=== PATIENT | male | born 1980 | race Caucasian/White ===

== ENCOUNTER 2016-12-09 15:17 | Observation (INO) ==
[2016-12-09] MEDS ORDERED: *HR* HYDROcodone/Acet 10/325 mg TABLET PO ONE (15:39)
--- NOTE | 2016-12-09 15:41 | Emergency Department Note ---
Disposition Clinical Impression: Open fracture of phalanx of left little finger Disposition: Admitted As Inpatient Condition: Good General Adult HPI - General Chief complaint: ED Extremity Injury, Upper Stated complaint: Smashed Left hand Time Seen by Provider: 12/09/16 15:22 Source: police Limitations: no limitations - History of Present Illness Pain Scale: 10 - Related Data Previous Rx's Medication Instructions Recorded HYDROcodone/Acet 7.5/325 mg [[place] 1 tab PO Q6H PRN #25 tablet 12/09/16 7.5-325 mg] Allergies Allergy/AdvReac Type Severity Reaction Status Date / Time iodine Allergy Swelling Verified 12/09/16 15:29 of Lip/Tongue/Throat shellfish derived Allergy Swelling Verified 12/09/16 15:29 of Lip/Tongue/Throat Past Medical History - Past Medical History Medical history: Reports: diabetes Psychiatric history: Reports: anxiety - Social History Smoking Status: Current every day smoker Smokeless Tobacco Status: No Alcohol use: Reports: none Drug use: Reports: none Physical Exam - General Limitations: no limitations General appearance: alert Course Vital Signs Temperature 98.1 F 12/09/16 15:21 Pulse Rate 85 12/09/16 15:21 Respiratory Rate 20 12/09/16 15:21 Blood Pressure 128/81 12/09/16 15:21 O2 Sat by Pulse Oximetry 98 12/09/16 15:21 Temperature 98.5 F 12/09/16 22:16 Pulse Rate 78 12/09/16 22:16 Respiratory Rate 16 12/09/16 22:16 Blood Pressure 110/75 12/09/16 22:16 O2 Sat by Pulse Oximetry 97 12/09/16 22:16 Oxygen Delivery Oxygen Delivery Room Air Attestation Statement - Attestation Attestation: I examined this patient and my medical decision-making was reviewed with the Resident Physician. I agree with the documented findings, disposition and treatment plan as described except to the extent set forth below. [id number] time provided Patient presents from senior living. He actually slammed his left fifth digit in the senior living door. He has a stellate laceration to the palmar aspect of his left fifth digit proximally. There are exposed flexor tendons. Concern for open fracture. The patient's tetanus has not been updated within the past 10 years. He is uncomfortable appearing on exam. We will x-ray the affected area and discussed the case with the on-call orthopedist 14:20: xrays reviewed by me and discussed with ortho agriculture extension specialist by resident physician
[2016-12-09] MEDS ORDERED: Lidocaine 1% 20 ML MDV INFILT ONE (15:42)
[2016-12-09] MEDS ORDERED: Tdap (ADACEL) Vaccine 0.5 ML IM ONE (15:53)
--- NOTE | 2016-12-09 15:53 | Emergency Department Note ---
Disposition Clinical Impression: Open fracture of phalanx of left little finger Qualifiers: Encounter type: initial encounter Phalanx: proximal Fracture alignment: displaced Qualified Code(s): S62.617B - Displaced fracture of proximal phalanx of left little finger, initial encounter for open fracture Disposition: Admitted As Inpatient Condition: Good Time of Disposition: 17:19 General Adult HPI - General Chief complaint: ED Extremity Injury, Upper Stated complaint: Smashed Left hand Time Seen by Provider: 12/09/16 15:22 Source: patient, police Mode of arrival: ambulatory Limitations: no limitations Nursing Notes Reviewed: Yes Vital Signs Reviewed: Yes - History of Present Illness HPI Narrative: 36-year-old male otherwise healthy presents with left hand injury. He presents with police from the [facility]. He reportedly shut his hand on a door. Injury to the left pinky with severe pain. Open laceration with exposed tendon vs bone. Denies any head injury, loss of consciousness. No other complaints. He is unsure of his last tetanus believes it could possibly be within the last 10 years. Will update tetanus here. X-ray and irrigation to evaluate for flexor tendon laceration or interruption. Pain Scale: 10 - Related Data Allergies Allergy/AdvReac Type Severity Reaction Status Date / Time iodine Allergy Swelling Verified 12/09/16 15:29 of Lip/Tongue/Throat shellfish derived Allergy Swelling Verified 12/09/16 15:29 of Lip/Tongue/Throat All systems ED: reviewed and negative except as stated. Review of Systems: As Per HPI Cardiovascular: Denies: chest pain Respiratory: Denies: dyspnea Gastrointestinal: Denies: abdominal pain Musculoskeletal: Denies: back pain, neck pain Past Medical History - Past Medical History Attestation: Yes The following information was validated with the patient. Source: patient Medical history: Reports: diabetes Psychiatric history: Reports: anxiety - Social History Smoking Status: Current every day smoker Smokeless Tobacco Status: No Alcohol use: Reports: none Drug use: Reports: none Physical Exam - General Limitations: no limitations General appearance: alert - Chest Chest inspection: Present: normal inspection, symmetric chest wall rise - Respiratory Respiratory exam: Present: normal lung sounds bilaterally. Absent: respiratory distress, wheezes - Cardiovascular Cardiovascular exam: Present: regular rate, normal rhythm, normal heart sounds - Expanded Upper Extremity Exam Shoulder exam: Present: normal inspection, full ROM Arm exam: Present: normal inspection, full ROM Elbow exam: Present: normal inspection, full ROM Forearm/Wrist exam: Present: normal inspection, full ROM. Absent: tenderness over anatomical snuff box, pain with axial thumb loading Hand exam: Present: normal inspection, laceration (Left 5th digit, open, exposed white material likely flexor tendon), deformity. Absent: amputation Neuromotor exam: Normal: wrist extension, thumb opposition, thumb IP flexion, thumb adduction, fingers 2-5 abduction Neurosensory exam: Normal: radial nerve Vascular exam: Normal: capillary refill, radial pulse Course - Reevaluation(s) Reevaluation #1: Tetanus was updated here. Patient is neurovascular intact with good capillary refill less than 2 seconds. Laceration with open fracture to the left 5th finger with exposed white material likely the flexor tendon. X-ray revealed a comminuted displaced fracture of the proximal phalanx. Will contact orthopedic surgeon on-call for possible repair. Dilaudid for pain. Time: 16:10 - Consultations Consultation #1: Spoke with Dr. Garcia, chetan and will speak to the hand surgeon. Time: 16:25 Consultation #2: Dr. Barboza at bedside to evaluate. Will admit for OR repair. Requests Ancef 2 g and nonadherent dressing. Remains neurovascularly intact. No irrigation was performed. Pain controlled Time: 17:19 Vital Signs Temperature 98.1 F 12/09/16 15:21 Pulse Rate 85 12/09/16 15:21 Respiratory Rate 20 12/09/16 15:21 Blood Pressure 128/81 12/09/16 15:21 O2 Sat by Pulse Oximetry 98 12/09/16 15:21 Temperature 98.1 F 12/09/16 15:21 Pulse Rate 85 12/09/16 15:21 Respiratory Rate 20 12/09/16 15:21 Blood Pressure 128/81 12/09/16 15:21 O2 Sat by Pulse Oximetry 98 12/09/16 15:21 Oxygen Delivery Oxygen Delivery Room Air Medical Decision Making - Medical Records Medical records reviewed: Yes I reviewed the patient's medical records. - Radiology Data Radiology results reviewed: Yes I reviewed the patient's radiology results. Hand X-Ray 12/09/16 15:39 IMPRESSION: Comminuted and displaced fracture involving the proximal phalanx of the 5th finger, with intra-articular extension to the DIP joint. D/ /09/2016 15:56:37 Manuel Ling MD / evita Interpreting Provider: Manuel Ling MD
[2016-12-09] MEDS ORDERED: *HR* HYDROmorphone (PF) 1 MG/ML SYRINGE IVP ONE (16:33)
[2016-12-09] MEDS ORDERED: ceFAZolin 2,000 MG in D5% in Water 100 ML IVPB ONE (17:12)
--- NOTE | 2016-12-09 17:14 | Anesthesia Evaluation PreOp ---
Date of Encounter: 12/09/16 Time of Encounter: 17:12 - Past History Planned Operation: I&D and ORIF Left Small finger Pulmonary History: Smoker, Pack/yr (1 ppd x 20 years) FLOSSER History: Other (Anxiety) Other Medical History: Diabetes Type II, GERD Anesthesia History: Past Anesthesia (none) Alcohol Use: none Drug use: none Medications and Allergies Allergies iodine Allergy (Verified 12/09/16 15:29) Swelling of Lip/Tongue/Throat shellfish derived Allergy (Verified 12/09/16 15:29) Swelling of Lip/Tongue/Throat - Meds/Allergy Pre-op Review Medications Reviewed: Yes Allergies Reviewed: Yes Beta Blockers on Current Med List: No Anesthesia Results - Labs hemacue 13.2 Glucose 64 Anesthesia Exam O2 Sat Height 1.68 m Weight 68.039 kg O2 Sat by Pulse Oximetry 98 Vital Signs Temp Pulse Resp BP Pulse Ox 98.1 F 85 20 128/81 98 12/09/16 15:21 12/09/16 15:21 12/09/16 15:21 12/09/16 15:21 12/09/16 15:21 Blood glucose: 64 Height: 5'6'' Weight: 150# NPO (# of Hours): > 8 hrs Pain Scale: 0 Pain Scale Used: Numeric (1 - 10) - HEENT Pupil (Motor): Pupils equal, EOMI Mallampati: II Teeth: Normal Oral Opening: Greater than 3 - FLOSSER LOC: Oriented FLOSSER Motor: Normal RUE, Normal LUE, Normal RLE, Normal LLE, Normal Face FLOSSER Sensory: Normal: RUE, LUE, RLE, LLE, Face - Cardiac Rhythm: Regular Murmur: None JVD: No Carotid Bruit: No - Pulmonary Breath Sounds: bilateral Clear Respiratory Effort: Symmetrical Anesthesia Assess/Plan ASA Score: 2 Modified Coxsackie Scale for Level of Consciousness: Cooperative, oriented, and tranquil Anesthetic Plan: General Autologous Blood: Yes Monitoring Plan: Standard Monitors Recovery Plan: PACU
[2016-12-09] MEDS ORDERED: Lidocaine -MPF 2% 2 ML VIAL ONE ×2 (17:27→19:02)
[2016-12-09] MEDS ORDERED: *HR* Midazolam HCl 2 MG/2 ML VIAL ONE (17:27)
[2016-12-09] MEDS ORDERED: *HR* FentaNYL (PF) 100 MCG/2 ML VIAL ONE ×2 (17:27→18:14)
[2016-12-09] MEDS ORDERED: *HR* Propofol 200 MG/20 ML VIAL IVP ONE (17:27)
--- NOTE | 2016-12-09 17:27 | Orthopedic Consult Note ---
Date of Encounter: 12/09/16 Time of Encounter: 17:25 Assessment and Plan (1) Open fracture of phalanx of left little finger Current Visit: Yes Status: Acute I did discuss the diagnosis in great detail with the patient. He has an open proximal phalangeal fracture of the left small finger after a crush injury. I did discuss treatment options and my recommendation is for exploration of the small finger with irrigation and debridement as well as fixation of the fracture either with a plate and screws, K wires, or external fixation. Other injured structures will be repaired as necessary. I did indicate to the patient the serious nature of this injury which will likely result in some degree of stiffness and the possible need for further procedures or even joint arthrodesis or finger amputation. The risks discussed included but were not limited to stiffness, bleeding, infection, blood clots, damage to neurovascular structures, tendons, ligaments, and bone. Also discussed was the risk of continued symptoms and possible need for further procedures. I did discuss the anesthesia risks including stroke, heart attack, and . I did discuss the reasonable, foreseeable postoperative course with the patient. I explained to the patient on simple terms and he wished to proceed and consent was obtained. Qualifiers: Encounter type: initial encounter Phalanx: proximal Fracture alignment: displaced Qualified Code(s): S62.617B - Displaced fracture of proximal phalanx of left little finger, initial encounter for open fracture History of Present Illness HPI: Mr. Orantes is a 36 year old male right-hand dominant prisoner with type 2 diabetes. He is otherwise healthy. He comes in after smashing his left small finger within the door of the cell. The patient indicates that there was an accident, however there has been a number of recent prisoners who have self- inflicted injuries of the same kind. Nevertheless the patient complains of isolated left small finger pain and was seen in the emergency department where an open proximal phalanx fracture was identified with a significant soft tissue injury. Emergency department has started 2 g of Ancef. The patient denies any other injuries. He does complain of altered sensation at the tip of the small finger. He has pain with any movement of the finger. No other modifying factors are associated signs or symptoms. He denies any headaches, neck pain, chest pain, abdominal pain, right upper stomach pain, and bilateral lower extremity pain. Past Med Surg Social Fam HX - Past Medical History Medical history: diabetes Psychiatric history: anxiety - Social History Smoking Status: Current every day smoker Smokeless Tobacco Status: No Alcohol use: none Drug use: none Medications and Allergies Allergies iodine Allergy (Verified 12/09/16 15:29) Swelling of Lip/Tongue/Throat shellfish derived Allergy (Verified 12/09/16 15:29) Swelling of Lip/Tongue/Throat All Systems Reviewed: Constitutional and musculoskeletal systems were reviewed and are negative unless otherwise stated in history of present illness. Physical Exam - Constitutional Vitals: Temp Pulse Resp BP Pulse Ox 98.1 F 85 20 128/81 98 12/09/16 15:21 12/09/16 15:21 12/09/16 15:21 12/09/16 15:21 12/09/16 15:21 CONSTITUTIONAL -Vitals reviewed -The patient is well developed, well nourished, well groomed PSYCHIATRIC -Fully alert and oriented x 3 -Pleasant mood LEFT UPPER EXTREMITY Inspection shows that he has a deformity about the small finger with a three quarters circumferential laceration beginning at the volar ulnar corner of the proximal phalangeal region and extending radially around the finger to the dorsum. There is exposed flexor tendon which appears to be intact. I am not able to evaluate the extensor tendon in the wound. There is no significant bleeding. The patient can grossly flex and extend the digit with significant pain related to the injury. No other injuries are noted. The finger is grossly sensate at the tip though he says the sensation is altered. It is well perfused with brisk capillary refill. The other digits are freely mobile, nontender, sensory, and well-perfused. Radial arteries 2+. He has full active and passive motion of the wrist, elbow, and shoulder. Diagnostic Imaging: I did personally review and interpret x-rays of the left hand which show significant fracture involving the distal portion of the proximal phalanx which is intra-articular and significantly angulated and displaced. The PIP joint itself appears to be intact otherwise. No other bony injuries noted. Results - Labs Labs: All other labs normal. Consult Discharge Plan - Plan Referrals: NONE,PCP [Primary Care Provider] -
[2016-12-09] MEDS ORDERED: Bupivacaine/EPI 1:200k 0.5%PF 10 ML VIAL ONE (17:34)
[2016-12-09] MEDS ORDERED: Albuterol 2.5 MG/3 ML NEBULIZER IH ONE (17:47)
[2016-12-09] MEDS ORDERED: Albuterol 2.5 MG/3 ML NEBULIZER ONE (17:49)
[2016-12-09] MEDS ORDERED: *HR* Dextrose 50 % in Water (Syg) 50 ML SYRINGE ONE (18:28)
[2016-12-09] MEDS ORDERED: EPHEDrine 50 MG/ML VIAL ONE (18:45)
[2016-12-09] MEDS ORDERED: *HR* HYDROmorphone (PF) 1 MG/ML SYRINGE IVP PRN (18:51)
[2016-12-09] MEDS ORDERED: *HR* Promethazine 25 MG/ML VIAL IVP PRN (18:51)
[2016-12-09] MEDS ORDERED: *HR* HYDROcodone/Acet 5/325 mg TABLET PO PRN (19:14)
[2016-12-09] MEDS ORDERED: Naloxone 0.4 MG/ML INJ IVP PRN (19:14)
--- NOTE | 2016-12-09 19:14 | Orthopedic Operative Note ---
Date of procedure: 12/09/16 Procedure: OPERATIVE REPORT DATE OF PROCEDURE: 12/09/2016 SURGEON: Petr Barboza MD RISK TECH(S): There are no assistants PREOPERATIVE DIAGNOSIS: Left small finger proximal phalanx fracture after crush injury POSTOPERATIVE DIAGNOSIS: Same PROCEDURE: Exploration of the left small finger with irrigation and reduction and pin fixation of the left small finger proximal phalanx ANESTHESIA: General anesthesia PREOPERATIVE ANTIBIOTICS: 2 g of Ancef ESTIMATED BLOOD LOSS: 1 milliliters TOURNIQUET TIME: 33 minutes at 250 mmHg SPECIMENS: There were no specimens IMPLANTS: 0.045 K wires 2 LOCAL INJECTION: 0.5% bupivacaine with 1:200,000 epinephrine; 6 mL used in total PREOPERATIVE NOTE AND INDICATIONS: This patient is a 36-year-old male who sustained a crush injury to his left small finger with a care home door. He is seen in the emergency department where an open proximal phalanx fracture was identified. House consultation to assist in the evaluation and management of this patient. My recommendation was for irrigation of the wound with reduction and fixation of the bone given the significant amount of displacement and angulation. The surgical plan was discussed with the patient. The risks, benefits, alternatives, and potential complications of this procedure were discussed with the patient including injury to veins, arteries, nerves, tendons, ligaments, and bone. Also discussed were the risks of infection, bleeding, pain, blood clots, the possible need for a blood transfusion, the possible need for further procedures, heart attack, stroke, and . Additional risks include malunion , nonunion, hardware failure, hardware irritation, and stiffness. All of this was explained in simple terms, and the patient verbalized understanding and wished to proceed. Consent was given to proceed with surgery. PROCEDURE: The patient was seen in the preoperative holding area where the identify and the consent were confirmed. The left small finger was marked. Final questions were answered. The patient was brought back to the operating room and placed supine on the operating room table. A huddle was performed with the patient and all vital surgical team members confirming patient identity, the correct procedure, and the correct operative site. General anesthesia was administered. The left upper extremity was prepped and draped in the usual sterile fashion. A surgical time out was performed immediately preceding the incision with all personnel in the operating room to confirm patient identity, the correct operative site and extremity, correct radiographic studies, availability of appropriate surgical equipment, and agreement on the planned procedure. The limb was exsanguinated and the tourniquet was inflated. The wound was explored. There was a nearly circumferential laceration around 270 degrees of the digit starting from volar ulnar, extending radially to the mid dorsal portion of the digit. This laceration was nearly transverse and at the base of the small finger. There is found to be no gross contamination. The wound was irrigated with 3 L of saline using cystoscopy tubing. The flexor digitorum profundus tendon was completely intact. There was a rudimentary flexor digitorum superficialis which was intact. The neurovascular bundles on both sides were also found to be intact. The dorsal apparatus was intact completely. After the fracture was irrigated a reduction maneuver was performed and 2 K wires were used for fixation. One went from the proximal ulnar corner distally. The other from straight proximal bridging the metacarpophalangeal joint and into the distal fragment. X-rays confirmed reasonable alignment. The wound was copiously irrigated a final time and the laceration was loosely closed with interrupted nylon stitches after the tourniquet was deflated. A sterile dressing and forearm-based splint was placed with the wrist in slight extension and the metacarpophalangeal joints at 90 and the interphalangeal joints extended. The instrument, sponge, and needle counts were correct after wound closure. POST OPERATIVE PLAN: Weight Bearing: Avoid weightbearing to the left upper extremity. DVT Prophylaxis: Ambulation Activity: Avoid aggressive activities with the left upper extremity. Wound Care: Keep the wound clean, dry, and intact. Pain Control: [place] Follow Up: Because the wound had no gross contamination and was very clean and is now closed, it was felt that he would need no further antibiotic management. He will be discharged back to the care home as forearm-based splint. I will see the patient back in the office in 2 weeks' time for a clinical and radiographic reevaluation or sooner if needed.
--- NOTE | 2016-12-09 19:20 | Discharge Summary ---
Date of Encounter: 12/09/16 Time of Encounter: 19:18 - Discharge Diagnosis (1) Open fracture of phalanx of left little finger Priority: Primary Status: Acute Qualifiers: Encounter type: initial encounter Phalanx: proximal Fracture alignment: displaced Qualified Code(s): S62.617B - Displaced fracture of proximal phalanx of left little finger, initial encounter for open fracture - Discharge Medications Prescriptions: HYDROcodone/Acet 7.5/325 mg [[place] 7.5-325 mg] 1 tab PO Q6H PRN #25 tablet PRN Reason: Pain Home Medications: HYDROcodone/Acet 7.5/325 mg [[place] 7.5-325 mg] 1 tab PO Q6H PRN #25 tablet 12/09 [Rx] Allergies/Adverse Reactions: Allergies iodine Allergy (Verified 12/09/16 15:29) Swelling of Lip/Tongue/Throat shellfish derived Allergy (Verified 12/09/16 15:29) Swelling of Lip/Tongue/Throat Labs on day of discharge: Labs from last 24 hours 12/09/16 17:55 POC Glucose 64 Date of admission: 12/09/16 17:11 Primary care physician: PCP NONE - Patient Status Disposition: Transfer Other Condition: Good - Discharge Instructions Follow Up With: NONE,PCP [Primary Care Provider] - - Hospital Course Hospital course: Mr. Orantes is a 36 year old male - Time Spent with Patient Total time spent providing and/or coordinating discharge services: - VTE Reasons for not Prescribing Prophylaxis: Treatment not Indicated - Low risk for VTE
--- NOTE | 2016-12-09 19:43 | Anesthesia Evaluation Post Op ---
Date of Encounter: 12/09/16 Time of Encounter: 19:42 - Vital Signs Vital Signs: vss - Lungs Lungs: Clear Ascult./Percussion - Airway Airway: Non-obstructed - Cardiovascular Baseline Rhythm - Mental Status Mental Status: Alert & Oriented, Answers Appropriately - Pain Pain Scale used: Aneudy (Faces) - Nausea Vomiting Nausea Vomiting: Not Present - Hydration Hydration: Ice chips - Discharge PostOp Status: Transfer Patient to floor
[2016-12-09 22:19] VITALS: BP 110/75
== END 2016-12-09 23:07 | disposition other institution (70) ==
LOC: EMEROO 15:17 → 3NENU 15:17
PROVIDERS: ADMIT Orthopaedic Surgery Hand Surgery; ATTEND Orthopaedic Surgery Hand Surgery